=== PATIENT | male | born 1965 | race Caucasian/White ===

== ENCOUNTER 2020-01-24 15:51 | Emergency (ER) | payer BC, OTHER ==
[2020-01-24 16:13] VITALS: BP 158/87; PULSE 79; TEMP 98; BMI 30.7
== END 2020-01-24 17:51 | disposition home or self-care (01) ==
LOC: FER 15:51
DX: M79.652 Pain in left thigh (principal)
CPT/HCPCS: 73552-TC-LT-FY; 73564-TC-LT-FY; 99284-25